=== PATIENT | female | born 2000 | race Caucasian/White ===

== ENCOUNTER 2024-02-25 09:50 | Outpatient (REF) | payer OTHER, SELFPAY ==
--- NOTE | ~2024-02-25 | US_ITS ---
EXAMINATION: US PELVIS CLINICAL INFORMATION: Irregular menses. COMPARISON: None available. TECHNIQUE: Ultrasound of the pelvis is performed using transabdominal transducers the patient refused endovaginal scanning. FINDINGS: Uterus: The uterus is anteverted measuring 5.2 x 2.2 x 3.1 cm. The double wall endometrial thickness is 6 mm. The uterus is smooth in contour and has normal myometrial echogenicity. No visible fibroid. Adnexa: Both ovaries are visualized. There is normal color flow to the adnexa. There is no ovarian torsion. There is no pelvic ascites or fluid collection. Right ovary measures 4.0 x 1.7 x 2.8 cm for a volume of 9.5 mL. Left ovary measures 3.2 x 2.0 x 1.7 cm for a volume of 5.9 mL. US/US pelvic and transvaginal IMPRESSION: Unremarkable pelvic ultrasound.
== END 2024-02-25 09:51 | disposition home or self-care (01) ==
LOC: HO.UMASIMG 09:50
PROVIDERS: Visit Provider Nurse Practitioner Women's Health
DX: N92.6 Irregular menstruation, unspecified (principal)
CPT/HCPCS: 76830; 76856